=== PATIENT | female | born 1970 | race Native Hawaiian/Other Pacific Islander ===

== ENCOUNTER 2022-08-09 14:37 | Emergency (ER) | payer OTHER ==
[~2022-08-09] VITALS: Ht 162.6 cm; Wt 120.7 kg
[2022-08-09 14:40] VITALS: BP 141/61; TEMP 98.2
[2022-08-09 14:55] LABS: PLATELET COUNT 253 K/uL (152-353)
[2022-08-09 15:02] LABS: POTASSIUM 3.9 mmol/L (3.6-5.2)
[2022-08-09] MEDS ORDERED: LIPITOR40 MG PO (17:40)
[2022-08-09] MEDS ORDERED: CVS STOOL SOFT100 MG PO (17:40)
[2022-08-09] MEDS ORDERED: LOSA50TA PO (17:42)
[2022-08-09] MEDS ORDERED: MELATONIN PO (17:43)
[2022-08-09] MEDS ORDERED: AMLODIPINE BESYLATE PO (17:44)
[2022-08-09] MEDS ORDERED: MULTIVITAMI1 PO (17:45)
[2022-08-09] MEDS ORDERED: CLOP75TA2 PO (17:53)
[2022-08-09] MEDS ORDERED: FLUOXETINE20 MG PO (17:54)
[2022-08-09] MEDS ORDERED: ZINC SULFATE220 M2 PO (17:55)
[2022-08-09] MEDS ORDERED: METF500T PO (17:58)
[2022-08-09] MEDS ORDERED: VITAMIN C 500 M1 TAB PO (17:58)
[2022-08-09] MEDS ORDERED: PROPRANOLOL60 MG PO (18:00)
[2022-08-09] MEDS ORDERED: GRALISE600 MG PO (18:01)
[2022-08-09] MEDS ORDERED: INSULIN LI100 UNIT/1 IM (18:03)
[2022-08-09] MEDS ORDERED: HYDROXYZINE HYD50 MG PO (18:06)
[2022-08-09] MEDS ORDERED: TYLENOL325 MG PO (18:08)
== END 2022-08-09 16:03 | disposition still patient (30) ==
LOC: ED 14:37
PROVIDERS: Emergency Medicine
DX: R46.89 Other symptoms and signs involving appearance and behavior (principal); Z11.52 Encounter for screening for COVID-19; Z04.6 Encounter for general psychiatric examination, requested by authority
CPT/HCPCS: 80053; 85027; 87635; 93005; 99283; U0003